=== PATIENT | female | born 1980 | race Caucasian/White ===

== ENCOUNTER 2017-03-16 16:46 | Emergency (ER) | payer BC ==
[2017-03-16 16:54] VITALS: BP 137/82
[2017-03-16] MEDS ORDERED: AMOX/CLAV 875 MG/125 MG TABLET PO STA (17:04)
[2017-03-16] MEDS ORDERED: oxyCOD/ACETAMIN 5 MG/325 MG TABLET PO STA (17:04)
[2017-03-16] MEDS ORDERED: DEXAMETHASONE 10 MG/ML VIAL PO STA (17:04)
--- NOTE | 2017-03-16 17:08 | ED Physician Documentation ---
History of Present Illness - Stated complaint Stated Complaint: LUMP ON THROAT - Chief complaint Chief Complaint: Heent - Additonal information Additional information: hx from pt 36 female several days of worsening painful swelling to L upper neck region no fever no tooth pain no sore throat no other swelling denies preg Review of Systems Constitutional: denies: Fever, Chills Ears: denies: Ear pain Throat: denies: Dental pain / toothache, Sore throat : denies: Now EGA Immunocompromised: denies: Immunocompromised PD PAST MEDICAL HISTORY - Past Medical History Past Medical History: No - Past Surgical History Past Surgical History: No - Present Medications Home Medications: Ambulatory Orders Medication Instructions Recorded Confirmed Amox/Clav 875/125 [Augmentin] 1 each PO Q12H #20 tablet 03/16/17 - Allergies Allergies/Adverse Reactions: Allergies Allergy/AdvReac Type Severity Reaction Status Date / Time No Known Drug Allergies Allergy Verified 03/16/17 16:54 - Social History Does the pt smoke?: No Smoking Status: Never smoker Does the pt drink ETOH?: No Does the pt have substance abuse?: No - Immunizations Immunizations are current?: Yes - POLST Patient has POLST: No PD ED PE NORMAL - Vitals Vital signs reviewed: Yes - HEENT HEENT: PERRL, Ears normal, Moist mucous membranes, Pharynx benign, Dentition benign - Neck Neck: Supple, no meningeal sign, Other (tender swelling over and just inferior to angle of mandible on l and some smaller tender sunmandibular adenopathy, no pain with tracheal manipulation, no supra / infraclavicular, axillary or R sided or posterior cervical nodes appreciated) - Cardiac Cardiac: RRR - Respiratory Respiratory: No respiratory distress, Clear bilaterally Results - Vitals Vitals: Vital Signs - 24 hr 03/16/17 16:51 Temperature 36.7 C Heart Rate 89 Respiratory 18 Rate Blood Pressure 137/82 H O2 Saturation 100 Oxygen O2 Source Room air PD MEDICAL DECISION MAKING - ED course ED course: most c/w focal cervical adenitis, will tx with decadron and antibiotics and pt to return to see me if not improving - if not improving ay need CT or sono Departure - Departure Disposition: 01 Home, Self Care Clinical Impression: Acute cervical adenitis Condition: Good Instructions: ED Cervical Adenitis Abx Tx Prescriptions: Amox/Clav 875/125 [Augmentin] 1 each PO Q12H #20 tablet Comments: Take the antibiotic every 12 hr - we gave you a pill in the ER and another for early tomorrow morning and then the pharmacies will be open again You should not need further steroids - the dose given in the ER is long acting. Once the steroids and antibiotics start to work, motrin and tylenol should be OK to handle the pain. Please return to see me tomorrow between 7 AM and 3 PM if not better - return sooner if getting much worse
[2017-03-16] MEDS ORDERED: AMOX/CLAV 875 MG/125 MG TABLET PO ONE (17:14)
[2017-03-16] MEDS ORDERED: DEXAMETHASONE 10 MG/ML VIAL ONE (17:15)
[2017-03-16] MEDS ORDERED: oxyCOD/ACETAMIN 5 MG/325 MG TABLET PO ONE (17:15)
== END 2017-03-16 17:17 | disposition home or self-care (01) ==
LOC: ED 16:46
DX: L04.0 Acute lymphadenitis of face, head and neck (principal)
CPT/HCPCS: 99283; A9270

== ENCOUNTER 2021-02-10 13:40 | Emergency (ER) | payer BC ==
[2021-02-10] MEDS ORDERED: ONDANSETRON 4 MG/2 ML VIAL IVP STA (14:33)
[2021-02-10] MEDS ORDERED: SODIUM CHLORIDE 0.9% 1,000 ML IV STA (14:33)
--- NOTE | 2021-02-10 14:35 | ED Physician Documentation ---
History of Present Illness - Stated complaint Stated Complaint: C+ - Chief complaint Chief Complaint: Resp - History obtained from History obtained from: Patient - Additonal information Additional information: This is a 40-year-old female who presents known to be Covid positive on approximately day 6 of illness who presents because she just generally does not feel well. She has fatigue, poor appetite, nausea and occasional vomiting, achiness. She denies any chest pain or dyspnea, no abdominal pain, no urinary symptoms. Was taking otc flu medication. She is unvaccinated. She denies any chronic medical conditions including immunocompromisation, diabetes, hypertension, CKD. Review of Systems Constitutional: reports: Fever, Chills, Myalgias, Fatigue Eyes: reports: Reviewed and negative Ears: reports: Reviewed and negative Nose: reports: Reviewed and negative Throat: reports: Reviewed and negative Cardiac: reports: Reviewed and negative Respiratory: reports: Reviewed and negative GI: reports: Nausea, Vomiting. denies: Abdominal Pain, Abdominal Swelling, Constipation, Diarrhea, Hematemesis, Bloody / black stool : reports: Reviewed and negative Skin: reports: Reviewed and negative Musculoskeletal: reports: Reviewed and negative Neurologic: reports: Reviewed and negative Psychiatric: reports: Reviewed and negative Endocrine: reports: Reviewed and negative Immunocompromised: reports: Reviewed and negative PD PAST MEDICAL HISTORY - Past Surgical History Past Surgical History: No - Present Medications Home Medications: Ambulatory Orders Medication Instructions Recorded Confirmed Amox/Clav 875/125 [Augmentin] 1 each PO Q12H #20 tablet 03/16/17 Ondansetron Odt [Zofran] 4 mg TL Q6H PRN #10 tablet 02/10/21 - Allergies Allergies/Adverse Reactions: Allergies Allergy/AdvReac Type Severity Reaction Status Date / Time No Known Drug Allergies Allergy Verified 02/10/21 14:06 - Social History Does the pt smoke?: No Smoking Status: Never smoker Does the pt drink ETOH?: No Does the pt have substance abuse?: No - Immunizations Immunizations are current?: Yes - POLST Patient has POLST: No PD ED PE NORMAL - Vitals Vital signs reviewed: Yes - General General: Alert and oriented X 3, No acute distress, Well developed/nourished - HEENT HEENT: Atraumatic, Pharynx benign - Neck Neck: Supple, no meningeal sign, No JVD - Cardiac Cardiac: RRR, No murmur, No gallop, No rub - Respiratory Respiratory: No respiratory distress, Clear bilaterally - Abdomen Abdomen: Normal bowel sounds, Soft, Non tender, Non distended - Back Back: No CVA TTP, No spinal TTP - Derm Derm: Normal color, Warm and dry, No rash - Extremities Extremities: No deformity, No tenderness to palpate, Normal ROM s pain - Neuro Neuro: Alert and oriented X 3, No motor deficit, No sensory deficit, Normal speech Eye Opening: Spontaneous Motor: Obeys Commands Verbal: Oriented GCS Score: 15 - Psych Psych: Normal mood, Normal affect Results - Vitals Vitals: Vital Signs - 24 hr 02/10/21 14:06 Temperature 38.6 C H Heart Rate 78 Respiratory 18 Rate Blood Pressure 146/90 H O2 Saturation 95 Oxygen O2 Source Room air - Labs Labs: Laboratory Tests 02/10/21 02/10/21 14:50 14:50 WBC 3.8 L RBC 5.34 Hgb 13.3 Hct 43.3 MCV 81.1 MCH 24.9 L MCHC 30.7 L RDW 16.1 H Plt Count 140 MPV 11.9 H Neut # (Auto) 2.5 Lymph # (Auto) 1.0 L [place] # (Auto) 0.3 Eos # (Auto) 0.0 Baso # (Auto) 0.0 Absolute Nucleated RBC 0.00 Nucleated RBC % 0.0 Sodium 133 L Potassium 2.6 L Chloride 97 L Carbon Dioxide 27 Anion Gap 9.0 BUN 6 Creatinine 0.7 Estimated GFR (MDRD) 93 Glucose 111 H Calcium 8.6 PD MEDICAL DECISION MAKING - ED course Complexity details: reviewed results, considered differential, d/w patient ED course: Tawny is a 40-year-old female who presented with known Covid infection. He had symptoms consistent with Covid including fatigue, poor appetite, aches and pains. Her vital signs are stable. We did obtain labs which showed a potassium of 2.6 but labs otherwise reassuring. Potassium was replaced orally as well as IV and she received a liter of IV normal saline and Zofran. Patient felt substantially better with these treatments. We will discharge her home with continued supportive treatment, I have prescribed Zofran as needed and she will work on ensuring she staying well-hydrated in utilizing electrolyte solution. I reviewed return precautions in detail with the patient if she were to develop shortness of breath, chest pain, dehydration or other new concerns. Departure - Departure Disposition: 01 Home, Self Care Clinical Impression: COVID-19, Hypokalemia Condition: Good Instructions: Hypokalemia Dc, Diet High Potassium Dc, COVID-19 [facility] Prescriptions: Ondansetron Odt [Zofran] 4 mg TL Q6H PRN #10 tablet PRN Reason: Nausea / Vomiting Comments: You presented with symptoms related to your covid infection. Your labs are stable aside from a low potassium. We gave you potassium orally and IV and some IV fluids as well. Continue supportive measures at home including rest, oral fluids, and try to incorporate potassium into your diet. Treatment for Covid is largely supportive. I have prescribed zofran for your nausea. Try to take small snacks and sip on electrolytes and fluid throughout the day. Return to the ER if you develop shortness of breath, chest pain, or signs of dehydration.
[2021-02-10 14:55] LABS: BASOPHILS % (AUTO) 0.3 %; HCT - HEMATOCRIT 43.3 % (37.0-47.0); HGB - HEMOGLOBIN 13.3 g/dL (12.0-16.0); LYMPHOCYTES % (AUTO) 25.7 %; MEAN CORPUSCULAR HEMOGLOBIN 24.9 pg (27.0-31.0); MEAN CORPUSCULAR HGB CONC 30.7 g/dL (32.0-36.0); MEAN CORPUSCULAR VOLUME 81.1 fL (81.0-99.0); MEAN PLATELET VOLUME 11.9 fL (7.9-10.8); MONOCYTES # (AUTO) 0.3 10^3/uL (0.0-1.0); MONOCYTES % (AUTO) 7.3 %; NEUTROPHILS # (AUTO) 2.5 10^3/uL (1.5-6.6); NEUTROPHILS % (AUTO) 66.4 %; PLT - PLATELET COUNT 140 10^3/uL (130-450); RED BLOOD COUNT 5.34 10^6/uL (4.20-5.40); RED CELL DISTRIBUTION WIDTH 16.1 % (12.0-15.0); WHITE BLOOD COUNT 3.8 x10^3/uL (4.8-10.8)
[2021-02-10 15:03] LABS: CALCIUM 8.6 mg/dL (8.5-10.3); CREATININE 0.7 mg/dL (0.4-1.0); POTASSIUM 2.6 mmol/L (3.5-5.0)
[2021-02-10] MEDS ORDERED: POTASSIUM CHLORIDE 20 MEQ TABLET PO STA (15:16)
[2021-02-10] MEDS ORDERED: POTASSIUM CHLOR 10 MEQ/100 ML 10 MEQ/100 ML BAG IV STA (15:16)
[2021-02-10 19:19] VITALS: BP 142/84
== END 2021-02-10 17:48 | disposition home or self-care (01) ==
LOC: ED 13:40
DX: U07.1 COVID-19 (principal); E87.6 Hypokalemia
CPT/HCPCS: 36415; 80048; 85025; 96361; 96374; 99283; 99284; A9270